=== PATIENT | male | born 1960 | race Caucasian/White ===

== ENCOUNTER 2023-12-26 23:16 | Emergency (ER) | payer BC, OTHER ==
[~2023-12-26] VITALS: Ht 188 cm; Wt 108.9 kg
[2023-12-27] MEDS ORDERED: FLUORESCEIN SODIUM OPHTH 1 EA STRIP ONE (00:28)
[2023-12-27] MEDS ORDERED: TETRAcaine 5 ML BOTTLE ONE (00:29)
[2023-12-27] MEDS: TETRAcaine 5 ML BOTTLE EACHEYE ONE (00:30)
[2023-12-27] MEDS: FLUORESCEIN SODIUM OPHTH 1 EA STRIP OP ONE (00:30)
[2023-12-27] MEDS ORDERED: SULFACETAMIDE 10% OPHTH 15 ML BOTTLE ONE (00:53)
[2023-12-27] MEDS: SULFACETAMIDE 10% OPHTH 15 ML BOTTLE OP ONE (00:58)
[2023-12-27] MEDS: CIPROFLOXACIN HCL 0.3% 5 ML BOTTLE LEFTEYE STA (00:58)
[2023-12-27 01:01] VITALS: BP 129/77; TEMP 98.1; O2SAT 100
== END 2023-12-27 01:02 | disposition home or self-care (01) ==
LOC: ER 23:22
DX: S05.02XA Injury of conjunctiva and corneal abrasion without foreign body, left eye, initial encounter (principal); X58.XXXA Exposure to other specified factors, initial encounter; Y93.89 Activity, other specified; Y92.89 Other specified places as the place of occurrence of the external cause; Y99.8 Other external cause status